=== PATIENT | male | born 1980 | race Caucasian/White ===

== ENCOUNTER 2017-05-21 20:07 | Emergency (ER) | END 2017-05-21 23:11 | disposition home or self-care (01) ==

== ENCOUNTER 2018-09-28 11:55 | Emergency (ER) | payer SELFPAY ==
[~2018-09-28] VITALS: Ht 162.6 cm; Wt 82.4 kg
[~2018-09-28 11:55] MED LIST: IBUP-1542 PO
[2018-09-28 11:57] VITALS: Ht 162.6 cm; Wt 82.4 kg
[2018-09-28] MEDS ORDERED: SOD CHLORIDE 0.9% 1,000 ML IV ONE (12:30)
--- NOTE | 2018-09-28 14:06 | ERD ---
ER Documentation Chief Complaint Chief Complaint dizziness x 3 days HPI This is a 38-year-old previously healthy male who is presenting with waxing and waning lightheadedness ongoing over the last 3 days. The patient is a construction ironworker helper and reports being out in the heat over the last several days. The patient does not endorse any dizziness. The room is not spinning around him. He does not endorse a headache or vision changes. He does not endorse any neck stiffness or pain. He does not endorse any diaphoresis. He does not endorse any chest pain or shortness of breath. He does not endorse any focal deficits. He does not endorse any weakness or numbness or tingling to the face or extremities. He has not been sick recently. He denies any fever or chills. He has not had any otalgia or earache. He does not endorse a sore throat. He has not had a cough. He has not had any diarrhea. He has no urinary symptoms. ROS All systems reviewed and are negative except as per history of present illness. Medications Home Meds Active Scripts Ibuprofen* (Motrin*) 600 Mg Tab, 600 MG PO Q6, #30 TAB Prov:ANNE CREWS Jyoti 05/21/17 PMhx/Soc History of Surgery: No Anesthesia Reaction: No Hx Neurological Disorder: No Hx Respiratory Disorders: No Hx Cardiac Disorders: No Hx Psychiatric Problems: No Hx Miscellaneous Medical Probl: No Hx Alcohol Use: No Hx Substance Use: No Hx Tobacco Use: No FmHx Family History: No diabetes Physical Exam Vitals Vital Signs Date Temp Pulse Resp B/P (MAP) Pulse Ox O2 O2 Flow FiO2 Time Delivery Rate 09/28/18 97.9 70 18 133/77 98 11:57 (95) Physical Exam Const: No apparent distress, well-developed, well-nourished Head: Normocephalic, Atraumatic Eyes: Normal Conjunctiva. Extraocular movements intact. Pupils equal, round and reactive to light ENT: Normal External Ears, Nose and Mouth. Neck: Full range of motion. No meningismus. Resp: Clear to auscultation bilaterally, No wheezes, rales or rhonchi Cardio: Regular rate and rhythm. No murmurs, rubs or gallops Abd: Soft, non tender, non distended. Normal bowel sounds Skin: No petechiae or rashes Back: No midline tenderness. No CVA tenderness Ext: No cyanosis, or edema Neur: Awake and alert, oriented 4. Cranial nerves intact. No facial droop. Normal strength, sensation and coordination. Psych: Normal Mood and Affect Results 24 hrs Current Medications Medications Dose Sig/Russell Start Time Status Last (Trade) Ordered Route PRN Stop Time Admin Dose Reason Admin Sodium 1,000 ml @ Q1H ONCE 09/28/18 DC 09/28/18 Chloride 1,000 mls/hr IV 12:30 12:35 09/28/18 13:29 Procedures/MDM MDM The patient's presentation warrants further investigation. Previous medical records, if available, were reviewed. EKG EKG read by me: Rate/Rhythm: Regular rate and rhythm at a rate of 69 bpm Intervals: Normal [place]: Normal Impression: Q waves in the inferior leads indicating possible age- indeterminate ischemia. No evidence of acute ischemia or arrhythmia TREATMENT/DISPOSITION The patient presents for lightheadedness. The patient has been out in the heat for work. Heat exhaustion is certainly possibility. I do not see any evidence of heatstroke. The patient has a reassuring physical exam. The patient is not clinically orthostatic. The patient is not dizzy. I have decreased suspicion for vertigo. The patient has no signs of emergent or symptomatic anemia. I do not suspect emergent electrolyte or metabolic emergencies. I have decrease suspicion for a thyroid disorder. The patient is not toxic appearing. I have decreased suspicion for an infectious etiology of symptoms. The patient's EKG is reassuring. I have low suspicion for acute coronary syndrome. I do not see evidence of any emergent cardiac arrhythmia, which includes but is not limited to heart block, Brugada syndrome or WPW. The patient has no heart murmurs or rales. I have low suspicion for hypertrophic cardiomyopathy. I do not suspect mitral valve prolapse. I do not see evidence of CHF. The patient does not endorse any chest or pleuritic pain. The history is negative for bleeding or clotting disorders. The patient has not been involved in any recent prolonged trips or surgeries or hospitalizations. The patient has no calf tenderness or swelling. I have decreased suspicion for PE as the etiology of symptoms. The patient has no focal deficits. The neurologic exam is reassuring. I have decreased suspicion for cerebral ischemia. There was no trauma or injury. There is no personal or family history of cerebral aneurysm. I have decreased suspicion for SAH or other ICH. I have low suspicion for temporal arteritis, cavernous venous thrombosis, subdural hematoma, epidural hematoma, meningitis. The patient was treated with IV fluids with improvement of his symptoms. DISCHARGE Upon reevaluation of the patient, symptoms have improved. No emergent diagnoses were identified. At this time, I feel that the patient stable for discharge. The patient was instructed to follow-up with a primary care physician in 1-3 days. The patient will be given strict precautions with which to return to the emergency department. Prescriptions: None The patient's blood pressure was elevated at greater than 120/80 while in the emergency department. The patient was otherwise stable with no evidence of hypertensive urgency or emergency. The patient does not require admission for blood pressure control. I have discussed with the patient the risks of hypertension. I have instructed the patient to return to the ER for any new or worsening symptoms including chest pain, shortness of breath, headache, blurred vision, confusion, nausea, vomiting or LOC. I have advised the patient to follow up with the primary care physician for outpatient monitoring and treatment for hypertension in 1-3 days. DISCLAIMER Inadvertent spelling and grammatical errors are likely due to EHR/dictation software use and do not reflect on the overall quality of patient care. Note that the electronic time recorded on this note does not necessarily reflect the actual time of the patient encounter. Departure Diagnosis: Primary Impression: Near syncope Condition: Stable Patient Instructions: Near Syncope, Unknown Additional Instructions: Thank you for for coming to [facility] for your care today. Please ask your nurse or provider if you have questions about your care today and do not leave until all your questions have been answered. Please use any medications given as directed and follow-up with your doctor (or the doctor you were referred to) in the next 1-3 days. If you do not have a primary care doctor you may follow up at the [facility] or [facility] (listed below). You may also use motrin and tylenol as needed for fever and/or pain unless ins tructed otherwise by your provider or nurse. Indications for more urgent follow- up have been discussed, but you may return to the Emergency Department at ANY time for any worrisome or worsening symptoms. If you have abdominal pain, please know that no test or exam you received is perfect and you should follow up within 8 hours for continued pain. If you had any imaging studies today, such as an X-Ray or CT Scan, these studies will be reviewed later by a radiologist. You will be called if there are importa nt findings that were not identified today, so make sure the contact information you provided at registration is correct. If you received any narcotic pain control medicine today, such as Vicodin, Morphine or Dilaudid, your coordination and judgment may be affected for a number of hours. Please do not drive or operate heavy machinery, and you may want someone to assist you at home. If you were given a prescription for narcotic medication, be aware that it is very addictive- use sparingly and only if necessary. PLEASE SEEK FURTHER EVALUATION AND MANAGEMENT AT YOUR DOCTORS OFFICE WITHIN THE NEXT 1-3 DAYS. IT IS YOUR RESPONSIBILITY TO MAKE AN APPOINTMENT FOR FOLOW-UP CARE. IF YOU HAVE A PRIMARY DOCTOR, PLEASE CALL THEIR OFFICE TO SCHEDULE AN APPOINTMENT FOR FOLLOW UP. IF YOU DO NOT HAVE A PRIMARY DOCTOR YOU CAN CALL OUR PHYSICIAN REFERRAL HOTLINE AT IF YOU CAN NOT AFFORD TO SEE A PHYSICIAN YOU CAN CHOSE FROM THE FOLLOWING [facility] CLINICS: [facility] [address] [facility]. [facility] [address] [facility] [facility] [address] [facility] [facility] [address] [facility]. [facility] [address] [facility]. [facility]. [address] TAISHA ABERNATHY MD Sep 28, 2018 14:06
[2018-09-28 14:51] VITALS: BP 120/73; PULSE 63; RESP 18
== END 2018-09-28 14:52 | disposition home or self-care (01) ==
LOC: E/R 11:55
DX: R55 Syncope and collapse (principal)
CPT/HCPCS: 93005; 96360; 96361; 99284; J7030